=== PATIENT | female | born 2005 | race Caucasian/White ===

== ENCOUNTER 2025-01-15 14:47 | Outpatient (CLI) | payer OTHER, SELFPAY | END 2025-01-15 14:48 | disposition home or self-care (01) | LOC: AMB 01-22 08:07 | PROVIDERS: PCP Pediatrics; Visit Provider Family Medicine | DX: T14.90XA Injury, unspecified, initial encounter (principal); I10 Essential (primary) hypertension; V43.52XA Car driver injured in collision with other type car in traffic accident, initial encounter; Y92.410 Unspecified street and highway as the place of occurrence of the external cause | CPT/HCPCS: A0425; A0427 ==

== ENCOUNTER 2025-01-15 15:22 | Emergency (ER) | payer OTHER, SELFPAY ==
--- OUTSIDE RECORDS SUMMARY | 2025-01-15 15:24 | XMS_ITS | Clinical Summary ---
Author Organization [facility] Address [address] [place] [address] Care Team Providers Care Switchboard Manager Name Role Phone Elsewhere, Pcp Primary Care Provider Unavailabl e Source Comments Patient records contain information from all sites at [facility]. For routine questions regarding patient records, call [phone] during business hours, M-F 8:00 AM - 5:00 PM Central Time. Record requests for emergency care only can be directed to [phone] at any time.[facility] Allergies No known active allergies Medications clindamycin (CLEOCIN T) 1 % gel Apply 1 Application topically daily. 3 Active multivitamin tablet Take 1 tablet by mouth daily. 0 Active Junel 1.5/30, 21, 1.5-30 mg-mcg tablet Take 1 tablet by mouth daily. Active tretinoin (RETIN-A) 0.025 % cream Apply 1 Application topically at bedtime. 3 Active ibuprofen (ADVIL,MOTRIN) 200 mg tablet Take 400 mg by mouth every 6 (six) hours as needed for pain (ankle pain). Active iron,carbonyl-v itamin C (Vitron-C) 65 mg iron- [address] tablet Take 65 mg of iron by mouth daily. Do not crush or chew. Active albuterol 90 mcg/actuation inhaler Inhale 2 puffs every 6 (six) hours as needed for wheezing. 8 g 5 Active Active Problems Problem Noted Date Diagnosed Date Sleep Apnea Unspecified 11/27/2024 Acne 02/26/2023 Encounters Date Type Department Care Team Description 11/27/2024 9:30 AM CDT Office Visit [facility] in [place], [place] [address], [address], [address] [place] [phone] Mansoor Hollingsworth P.A.-C. Rash (Primary Dx) 10/28/2024 Refill [facility] in [place], [place] [address], [address], [address] [place] [phone] Tressa Mayers APRN, C.N.P., M.S.N. Med Refill from Last 3 Months Social History Tobacco Use Types Packs/Day Years Used Date Smoking Tobacco: Never Smokeless Tobacco: Never Tobacco Cessation:Counseling Given: Not Answered Dental Answer Date Recorded Dental: Regular Dentist Unknown 05/10/20 23 Comments No Sex and Gender Information Value Date Recorded Sex Assigned at Not on file Legal Sex Female 9:16 AM CDT Gender Identity Not on file Sexual Orientation Not on file Last Filed Vital Signs Vital Sign Reading Time Taken Comments Blood Pressure 147/81 11/27/2024 9:25 AM CDT Pulse 89 11/27/2024 9:25 AM CDT Temperature 36.5 C (97.7 F) 11/27/2024 9:25 AM CDT Respiratory Rate 16 11/27/2024 9:25 AM CDT Oxygen Saturation 98% 10/06/2024 9:38 AM MANAGER MANAGING Inhaled Oxygen Concentration - - Weight 125 kg (274 lb 14.6 oz) 12/10/2023 8:19 A M CDT Height - - Body Mass Index - - Plan of Treatment Health Maintenance Due Date Last Done Comments Chlamydia and Gonorrhea Screening 2005 HIV Screening 2005 Hearing Screening during Well Child Visit 2005 Hepatitis C Screening 2005 TB Screening during Well Child Visit 2005 1 week Well Child Check-Up 2005 1 month Well Child Check-Up 2005 2 month Well Child Check-Up 2005 4 month Well Child Check-Up 2005 9 month Well Child Check-Up 2005 15 month Well Child Check-Up 04/13/2006 18 month Well Child Check-Up 07/14/2006 2 year Well Child Check-Up 01/11/2007 30 month Well Child Check-Up 07/14/2007 3 year Well Child Check-Up 01/12/2008 Well Child Check-Up Completed in Past Year 01/12/2008 5 year Well Child Check-Up 01/11/2010 6 year Well Child Check-Up 01/11/2011 7 year Well Child Check-Up 01/12/2012 8 year Well Child Check-Up 01/11/2013 10 year Well Child Check-Up 01/11/2015 DTaP,Tdap,and Td Vaccines (6 - Tdap) 05/02/2016 05/01/2016, 02/18/2010, 06/22/2006, Additional history exists 12 year Well Child Check-Up 01/11/2017 13 year Well Child Check-Up 01/11/2018 14 year Well Child Check-Up 01/11/2019 Vision Screening during Well Child Visit 2019 15 year Well Child Check-Up 01/12/2020 17 year Well Child Check-Up 01/11/2022 18 year Well Child Check-Up 01/11/2023 19 year Well Child Check-Up 01/12/2024 Depression Screening (Annual PHQ-2) 08/30/2024 20 year Well Child Check-Up 01/11/2025 Well Child Check-Up (WC) 01/11/2025 Hepatitis B Vaccines Completed 06/22/2006, 2005, 2005 Pneumococcal vaccine (0-49 years) Aged Out 06/22/2006, 2005, 2005, Additional history exists No longer eligible based on patient's age to complete this topic IPV Vaccines Completed 02/18/2010, 04/2006, 2005, Additional history exists MMR Vaccines Completed 02/18/2010, 03/05/2006 Varicella Vaccines Completed 02/18/2010, 03/05/2006 HPV Vaccines Completed 10/18/2017, 04/01/2017 Meningococcal Vaccine Completed 07/01/2021, 017 Anemia/Iron Deficiency Screening During Well Child Visit (if High Risk Menstruating Female) Completed 02/25/2024, 03/19/2023, 08/19/2022, Additional history exists COVID-19 Vaccine Completed 05/14/2024, , 09/10/2021, Additional history exists Influenza Vaccine Completed 05/14/2024, , 06/17/2021, Additional history exists Insurance [facility] Care Teams Switchboard Manager Relationship Specialty Start Date End Date Elsewhere, Pcp PCP - General Internal Medicine 05/10/23
--- OUTSIDE RECORDS SUMMARY | 2025-01-15 15:24 | XMS_ITS | Patient Health Record ---
Author Organization [facility] Address [address] [place] [id number] Care Team Providers Care Recycling Crew Supervisor Name Role Phone Dian Vora MD Primary Care Provider [phone] Reason For Referral No Information Problems Problem Type SNOMED Code ICD Code Onset Dates Problem Status W/U Status Risk Notes Problem Pneumatosis intestinalis (K63.89) Active confirmed Plan Of Treatment No Information Insurance Providers Payer Name Payer Address Payer Phone Subscriber Number Group Number Insured Name Patient Relationship to Insured Coverage Start Date Coverage End Date [facility] [address] [address] [place], [place] [id number] Nikkie Robledo Self - patient is the insured
--- OUTSIDE RECORDS SUMMARY | 2025-01-15 15:24 | XMS_ITS | Clinical Summary ---
Author Organization [employer] [facility] Address [address] [place] [address] Care Team Providers Care Senior Java Data Architect Name Role Phone Dian Vora MD Primary Care Provider [phone] Allergies No known active allergies Medications multivitamin (MVI) tablet Take 1 tablet by mouth once daily. 0 0 Active triamcinolone (ARISTOCORT; KENALOG) 0.1 % creamIndications :Eczema, unspecified type Apply topically to affected area(s) 2 times daily. 80 g 2 2 Active clindamycin 1% (CLEOCIN-T) 1 % gelIndications:A cne, unspecified acne type Apply topically to affected area(s) two times daily. 60 g 5 3 Active norethindrone acet-ethinyl est, 1.5-30 mg-mcg, (Microgestin 1.5/30) 1.5-30 mg-mcg tab tabletIndication s:Acne, unspecified acne type,Other acne,Cystic acne Take 1 Tablet by mouth once daily. 90 Tablet 3 4 Active tretinoin (RETIN-A) 0.025 % creamIndications :Acne, unspecified acne type APPLY TOPICALLY TO AFFECTED AREA(S) AT BEDTIME. 45 g 2 4 Active Active Problems Problem Noted Date Diagnosed Date Acne 02/26/2023 Tonsillar hypertrophy Sleep disorder breathing Resolved Problems Problem Noted Date Diagnosed Date Resolved Date No significant family history 02/26/2023 02/26/2023 Immunizations Immunization Administration Dates Next Due COVID-19 vaccine ([employer] NTech 30mcg/0.3mL) PF, MDV 09/10/2021,01/30/2021,01/09/2021 DTaP 06/22/2006, 6,2005,04/13 DTaP-IPV (Kinrix) 02/18/2010 HIB-HepB (Comvax) 06/22/2006,2005,04/13/20 05 HPV 9 (Gardasil 9) 10/18/2017,04/01/2017 Hepatitis A (Peds) 03/01/2007,06/22/2006 Inactivated Polio Vaccine 2005,2005, 2005 Influenza A (H1N1), Inactivated 10/09/2009 Influenza A (H1N1), Inactiva manjinder (Age >=3 Years) 07/24/2009 Influenza Virus, Unspecified 05/25/2020 Influenza, IIV3 (Age 6-35 mos) 06/16/2012,2010,07/13/2007 Influenza, IIV3 (Age >=3 years) 07/26/2006,06/22 Influenza, IIV4 06/17/2021,06/12/2019 Influenza,CCIIV4 PRESERV FREE 06/17/2022, 020,06/18/2018 Influenza,LAIV4 Live Intrana matias (Flumist) 06/07/2013 MENINGOCOCCAL VACCINE 2 VIAL [id number] (MENVEO) 07/01/2021,04/01/2017 MMR 02/18/2010,03/05/2006 Pneumococcal conj 7-Valent (Prevnar 7) 1 ,2005,2005,06/15 Td, Preservative Free (age >= 7 Years) 6 Varicella Vaccine 02/18/2010,03/05/2006 Family History Medical History Relation Name Comments Good Health Father No Known Problems Maternal Grandfather Diabetes Maternal Grandmother Hypertension Maternal Grandmother Diabetes Mother Hypertension Mother Heart attack Paternal Grandfather No Known Problems Paternal Grandmother Relation Name Status Comments Father Alive Maternal Grandfather Alive Maternal Grandmother Alive Mother Alive Paternal Grandfather Paternal Grandmother Alive Social History Tobacco Use Types Packs/Day Years Used Date Smoking Tobacco: Never Smokeless Tobacco: Never Alcohol Use Standard Drinks/Week Comments Never 0 (1 standard drink = 0.6 oz pur e alcohol) PHQ-2 Answer Date Recorded PHQ-2 TOTAL SCORE 0 02/25/2024 Social Connections Answer Date Recorded Do you often feel lonely or isolated from those around you? 0 02/25/2024 Financial Resource Strain Answer Date R ecorded Difficulty of Paying Living Expenses 3 02/25/2024 Difficulty of Paying Living Expenses Not on file 02/25/2024 Food Insecurity Answer Date Recorded Do you worry your food will run out before you are able to buy more? 1 02/25/2024 Transportation Needs Answer Date Record ed Does lack of transportation keep you from medica l appointments? 1 02/25/2024 Does lack of transportation keep you from work, meetings or getting things that you need? 1 02/25/2024 Housing Stability Answer Date Recorded What is your housing situation today? 1 02/25/2024 Utilities Answer Date Recorded Do you have trouble paying f or utilities (for example, heat, electricity, water, phone)? 1 02/25/2024 Comments No Sex and Gender Information Value Date Recorded Sex Assigned at Not on file Legal Sex Female 6:04 PM CDT Gender Identity Not on file Sexual Orientation Not on file Occupation Industry Job Start Date Job End Date student Not on file Not on file Not on file Obstetrics History Para Term AB IAB SAB Ectopic Multiple Livin g Live Births 0 0 0 0 0 0 0 0 0 0 0 Last Filed Vital Signs Vital Sign Reading Time Taken Comments Blood Pressure 124/64 03/30/2024 2:42 PM CDT Pulse 91 03/30/2024 2:42 PM CDT Temperature 36.6 C (97.8 F) 08/19/2022 8:26 AM INVESTIGATOR CASH SHORTAGE Respiratory Rate 16 08/19/2022 8:26 AM INVESTIGATOR CASH SHORTAGE Oxygen Saturation 97% 03/30/2024 2:42 PM CDT Inhaled Oxygen Concentration - - Weight 125.6 kg (277 lb) 03/30/2024 2:42 PM CDT Height 167.6 cm (5' 5.98) 03/30/2024 2:42 PM CD T Body Mass Index 44.73 03/30/2024 2:42 PM CDT Plan of Treatment Health Maintenance Due Date Last Done Comments HIV for age 15-65 02/12/2020 Hepatitis C screening for age 18-79 2023 Depression screening for age 12+ 02/24/2025 02/25/2024 Well Child Check for age 3-20 02/24/2025 02/25/2024, 02/26/2023, 01/16/2022, Additional history exists BMI (ht and wt on same day) for age 18+ 03/30/2025 03/30/2024, 02/25/2024, 02/26/2023 Influenza Vaccine (Season Ended) 2025 06/17/2022, 06/17/2021, 05/25/2020, Additional history exists Tdap 08/30/2025 Postponed from 02/12/2016 (Other) Tetanus booster 05/01/2026 05/01/2016 Pneumococcal series for age 6-49 Aged Out 06/22/2006, 2005, 2005, Additional history exists No longer eligible based on patient's age to complete this topic HPV series for age 9-26 Completed 10/18/2017, 04/01 Meningococcal series for age 11-21 Completed 07/01/2021, 04/01/2017 COVID-19 vaccine series Completed 05/14/20, 06/17/2022, 09/10/2021, Additional history exists Insurance [facility] [place] [address] Advance Directives * Full Code (Latest Code Status on File) Date Activated Date Inactivated Comments 06/15/2019 6:25 AM 06/15/2019 12:51 PM Question Answer Comments Code Status Discussion: Per Existing Order Care Teams Senior Java Data Architect Relationship Specialty Start Date End Date Dian Vora MD PCP - General Family Practice 05/09/19
[2025-01-15 15:28] VITALS: BP 135/85; PULSE 95; RESP 18; TEMP 36.4; O2SAT 95; BMI 42.0
[2025-01-15 15:35] VITALS: BP 135/85; PULSE 88; O2SAT 97
[2025-01-15 15:36] VITALS: PULSE 91; O2SAT 96
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
[2025-01-15 15:45] VITALS: PULSE 92; O2SAT 97
[2025-01-15 16:02] VITALS: BP 131/71
--- OUTSIDE RECORDS SUMMARY | 2025-01-15 16:05 | XMS_ITS | Clinical Summary ---
Author Organization [facility] Address [address] [place] [address] Care Team Providers Care Crisis Intervention Counselor Name Role Phone Elsewhere, Pcp Primary Care Provider Unavailabl e Source Comments Patient records contain information from all sites at [facility]. For routine questions regarding patient records, call [phone] during business hours, M-F 8:00 AM - 5:00 PM Central Time. Record requests for emergency care only can be directed to [phone] at any time.[facility] Allergies No known active allergies Medications clindamycin [...] Description 11/27/2024 9:30 AM CDT Office Visit [facility] in [place], [place] [address] [place] [phone] Mansoor Hollingsworth P.A.-C. Rash (Primary Dx) 10/28/2024 Refill [facility] in [place], [place] [address] [place] [phone] Tressa Mayers APRN, C.N.P., M.S.N. Med Refill [...] CDT Oxygen Saturation 98% 10/06/2024 9:38 AM CHILDREN'S ENTERTAINER Inhaled Oxygen Concentration - - Weight 125 [...] 05/14/2024, , 06/17/2021, Additional history exists Insurance [facility] Care Teams Crisis Intervention Counselor Relationship Specialty Start Date End Date Elsewhere, Pcp PCP - General Internal Medicine 05/10/23
--- OUTSIDE RECORDS SUMMARY | 2025-01-15 16:05 | XMS_ITS | Clinical Summary ---
Author Organization [employer] [facility] Address [address] [place] [address] Care Team Providers Care Mystery Shopper Name Role Phone Dian Vora MD Primary Care Provider [phone] Allergies No known active allergies Medications multivitamin [...] Immunization Administration Dates Next Due COVID-19 vaccine ([employer] NTech 30mcg/0.3mL) PF, MDV 09/10/2021,01/30/2021,01/09/2021 DTaP 06/22/2006, [...] 36.6 C (97.8 F) 08/19/2022 8:26 AM PAPERBACK MACHINE OPERATOR Respiratory Rate 16 08/19/2022 8:26 AM PAPERBACK MACHINE OPERATOR Oxygen Saturation 97% 03/30/2024 2:42 PM CDT [...] 05/14/20, 06/17/2022, 09/10/2021, Additional history exists Insurance [facility] Advance Directives * Full Code (Latest Code Status on File) Date Activated Date Inactivated Comments 06/15/2019 6:25 AM 06/15/2019 12:51 PM Question Answer Comments Code Status Discussion: Per Existing Order Care Teams Mystery Shopper Relationship Specialty Start Date End Date Dian Vora MD PCP - General Family Practice 05/09/19
[2025-01-15 16:20] VITALS: BP 131/71; PULSE 86; PULSE 88; RESP 16; O2SAT 97
== END 2025-01-15 16:26 | disposition home or self-care (01) ==
LOC: ED 16:03
PROVIDERS: Emergency Provider Family Medicine; PCP Pediatrics
DX: F41.1 Generalized anxiety disorder (principal); R03.0 Elevated blood-pressure reading, without diagnosis of hypertension; V43.52XA Car driver injured in collision with other type car in traffic accident, initial encounter
CPT/HCPCS: 99282; 99283